=== PATIENT | male | born 1950 | race Caucasian/White ===

== ENCOUNTER 2020-03-24 08:28 | Day surgery (SDC) | payer MEDICARE ==
[2020-03-21 16:35] VITALS: BMI 33.0
[2020-03-24] MEDS ORDERED: Fentanyl 100 MCG/2 ML VIAL ONE ×2 (09:26→11:38)
[2020-03-24] MEDS ORDERED: Scopolamine 1.5 mg/72 hour Patch ONE (09:38)
[2020-03-24 09:52] LABS: Hemoglobin 14.2 g/dL (14.0-18.0); Mean Corpuscular Hemoglobin 32.8 pg (27.0-31.0); Mean Corpuscular Volume 96.4 fL (78.0-98.0); Mean Platelet Volume 7.3 fL (7.4-10.4); Platelet Count 225 thou/uL (130-400); RBC Distribution Width 11.9 % (11.5-14.5); Red Blood Cell (RBC) Count 4.33 mill/uL (4.70-6.10); White Blood Cell (WBC) Count 5.6 thou/uL (4.8-10.8)
[2020-03-24 09:55] LABS: Anion Gap 12 mmol/L (10-20); BUN (Urea Nitrogen) 14 mg/dL (8.4-25.7); Calc. Creatinine Clearance 106 mL/min (70-130); Calcium 9.5 mg/dL (7.8-10.44); Carbon Dioxide 24 mmol/L (23-31); Chloride 110 mmol/L (98-107); Estimated GFR-MDRD 77; Glucose 108 mg/dL (80-115); Potassium 4.1 mmol/L (3.5-5.1); Sodium 142 mmol/L (136-145)
--- NOTE | 2020-03-24 11:09 | OP ---
DATE OF PROCEDURE: 03/24/2020 POT RUNNER: Nessa Cuadra PA-C. PROCEDURE PERFORMED: Right L3-L4 far-lateral microdiskectomy. DESCRIPTION OF PROCEDURE: The patient was brought to the operating room and intubated. He was rolled in a prone position on gel-filled chest rolls. The previous incision was reopened exposing L3 and L4 and the level was confirmed by x-ray. We performed a right L3-L4 hemilaminectomy, facetectomy, and foraminotomy at L3-L4. We performed complete right L3-L4 facetectomy. There was extensive scar that had extended up into the L3-L4 lateral recess and CSF was witnessed emanating from the region of the scar. We next explored and found a herniated disk, which was removed in multiple fragments both beneath the foraminal L3 nerve and the L4 nerve in the lateral recess. A complete decompression of right L3 and right L4 was achieved. Disk space itself was incised and debrided of loose disk material. The wound was then extensively irrigated and MAC hemostasis was secured. Venous bleeding was controlled with Gelfoam tamponade and DuraSeal was laid over the region of the CSF leakage. Vancomycin powder was then applied and the wound was then closed in anatomic layers. Job ID: [id number]
[2020-03-24] MEDS ORDERED: Promethazine HCl 25 MG/ML VIAL ONE (11:28)
[2020-03-24] MEDS ORDERED: Glycopyrrolate 0.2 MG/ML 5 ML SYRINGE ONE (12:14)
[2020-03-24] MEDS ORDERED: Ondansetron PF 4 MG/2 ML Vial ONE (12:14)
[2020-03-24] MEDS ORDERED: EPHEDRINE 25 MG/5 ML SYRINGE ONE (12:14)
[2020-03-24] MEDS ORDERED: PHENYLEPHRINE-NS 100 MCG/ML 10 ML SYRINGE ONE (12:14)
[2020-03-24] MEDS ORDERED: Rocuronium Bromide 10 MG/ML (10ML VIAL) ONE (12:14)
[2020-03-24] MEDS ORDERED: Dexamethasone 20 MG/5 ML VIAL ONE (12:14)
[2020-03-24] MEDS ORDERED: Lidocaine 1% PF 5 ML VIAL ONE (12:14)
[2020-03-24] MEDS ORDERED: PROPOFOL 200 MG/20 ML VIAL ONE (12:14)
== END 2020-03-24 14:30 | disposition home or self-care (01) ==
LOC: SDC 08:28
PROVIDERS: ATTEND Neurological Surgery
PROC: 0SB20ZZ Excision of Lumbar Vertebral Disc, Open Approach (ICD-10-PCS; principal; 2020-03-24)
PROC: 01NB0ZZ Release Lumbar Nerve, Open Approach (ICD-10-PCS; 2020-03-24)
DX: M51.16 Intervertebral disc disorders with radiculopathy, lumbar region (principal); K21.9 Gastro-esophageal reflux disease without esophagitis; E78.5 Hyperlipidemia, unspecified; Z79.82 Long term (current) use of aspirin; Z79.899 Other long term (current) drug therapy; Z88.2 Allergy status to sulfonamides
CPT/HCPCS: 36415; 76000; 80048; 85027; 93005; 93010; J0690; J2550; J3010; J3370